=== PATIENT | male | born 1960 | race Caucasian/White ===

== ENCOUNTER → 2023-01-12 | Outpatient (CLI) | payer OTHER ==
--- NOTE | 2023-01-13 06:41 | DIREP ---
PROCEDURE:XRAY SPINE LUMBAR 2-3 VWS COMPARISON:None. INDICATIONS:Z00.00 HISTORY AND PHYSICAL EVALUATION TECHNIQUE:AP, lateral, and coned down lateral views of the lumbar spine are provided. FINDINGS: ALIGNMENT:Levoconvex curvature of the lumbar spine. VERTEBRAE:Normal vertebral body height. Moderate anterior and lateral osteophyte formation. Moderate diffuse facet arthrosis. DISK SPACES:Normal. SPONDYLOLISTHESIS:None. SACROILIAC JOINTS:Mild osteophytosis. OTHER:Normal. CONCLUSION:Degenerative changes without acute bony abnormality. Dictated by: Kenrick Damon M.D. on 01/13/2023 at 06:39 AM
--- NOTE | 2023-01-13 10:34 | DIREP ---
PROCEDURE:XRAY FOOT MIN 3 VWS-LT COMPARISON:None. INDICATIONS:Z00.00 HISTORY AND PHYSICAL EVALUATION FINDINGS: BONES:Normal. JOINTS:Medial deviation of the toes, correlate with positioning. Moderate degenerative changes the metatarsal phalangeal joints and interphalangeal joints. SOFT TISSUES:Normal. OTHER:No additional findings. CONCLUSION:Medial deviation of toes limiting evaluation, correlate with positioning versus a chronic degenerative finding. Degenerative changes. No acute findings. Dictated by: Obey Hunter MD on 01/13/2023 at 10:30 AM
--- NOTE | 2023-01-13 10:36 | DIREP ---
PROCEDURE:XRAY FOOT MIN 3 VWS-RT COMPARISON:None. INDICATIONS:Z00.00 HISTORY AND PHYSICAL EVALUATION FINDINGS: BONES:Normal. JOINTS:Mild hallux valgus. Moderate degenerative changes. SOFT TISSUES:Normal. OTHER:No additional findings. CONCLUSION:Mild hallux valgus. Moderate degenerative changes. Dictated by: Obey Hunter MD on 01/13/2023 at 10:33 AM
== END | disposition home or self-care (01) ==
LOC: RAD 14:49
PROVIDERS: ATTEND Nurse Practitioner Family
DX: M19.071 Primary osteoarthritis, right ankle and foot (principal); M20.11 Hallux valgus (acquired), right foot; M47.816 Spondylosis without myelopathy or radiculopathy, lumbar region; M25.78 Osteophyte, vertebrae; Z00.00 Encounter for general adult medical examination without abnormal findings
CPT/HCPCS: 72100; 73630-LT; 73630-RT